=== PATIENT | male | born 1945 | race Caucasian/White ===

== ENCOUNTER 2017-03-12 01:39 | Emergency (ER) | payer OTHER ==
[~2017-03-12] VITALS: Ht 177.8 cm; Wt 111.0 kg
[~2017-03-12 01:39] MED LIST: AMLO-114 PO; CLOB-65 TOP
[2017-03-12 01:51] VITALS: Ht 177.8 cm; Wt 111.0 kg
[2017-03-12] MEDS ORDERED: FRS/40 PO (01:57)
[2017-03-12] MEDS ORDERED: POTA-74 PO (01:59)
[2017-03-12] MEDS ORDERED: WARF5TAB90 PO (02:00)
[2017-03-12] MEDS ORDERED: LISI-729 PO (02:01)
[2017-03-12 02:17] LABS: BASO % 0.1 %; BASO ABS # 0.01 K/uL (0-0.2); COMPLETE YES; EOS % 1.9 %; HEMATOCRIT 47.6 % (42-52); IG% 0.3 %; LYMPH % 21.1 %; LYMPH ABS # 1.58 K/uL (1.2-3.4); MEAN CELL VOLUME 95.8 fL (80-100); MEAN CORPUSCULAR HEMOGLOBIN 33.4 pg (25-34); MEAN CORPUSCULAR HGB CONC 34.9 g/dl (32-36); MEAN PLATELET VOLUME 11.4 fL (7.4-10.4); MONO % 11.2 %; NEUT % 65.4 %; PLATELET COUNT 201 K/uL (130-400); RED BLOOD COUNT 4.97 M/uL (4.7-6.1); WHITE BLOOD COUNT 7.49 K/uL (4.8-10.8)
[2017-03-12 02:26] LABS: INR 2.1 (0.9-1.1); PARTIAL THROMBOPLASTIN RATIO 1.3
--- NOTE | 2017-03-12 02:36 | EMERGENCY ROOM VISIT NOTE ---
History Report prepared by Nisha: Maria M Anderson Under the Supervision of: Dr. Merry Gifford M.D. First contact with patient: 01:54 Chief Complaint: FALL Stated Complaint: FALL History of Present Illness The patient is a 71 year old male who presents to the Emergency Room with complaints of a fall WELLNESS DIRECTOR. The patient was sleeping when he fell out of bed. His son found him on the ground next to his bed snoring. The patient appeared to be bleeding from his head. He does not remember the fall or hitting his head. He does not often roll out of bed. He has right elbow pain. He denies any neck pain , chest pain, or SOB. He is on coumadin for atrial fibrillation. The patient has a history of meningioma. He was on a seizure medication as a precaution, but has not had any seizures. The tumor came back in late 2014. He had radiation treatment and the tumor is no longer growing. Source of History: patient, spouse/significant other Onset: WELLNESS DIRECTOR Position: other (global) Quality: other (fall) Timing: other (episodic) Associated Symptoms: No neck pain, No chest pain, No SOB Note: Pt reports right elbow pain. Review of Systems See HPI for pertinent positives & negatives. A total of 10 systems reviewed and were otherwise negative. Past Medical & Surgical Medical Problems: (1) Meningioma (2) Recurrent meningioma of the brain Surgical Problems: (1) H/O left inguinal hernia repair (2) S/P tonsillectomy (3) Status post cataract surgery (4) Status post craniotomy Family History No pertinent family history stated. Social History Smoking Status: Never Smoker Drug Use: none Marital Status: Housing Status: lives with family Occupation Status: retired Current/Historical Medications Scheduled Amlodipine (Norvasc), 10 MG PO DAILY Furosemide (Lasix), 40 MG PO BID Lisinopril (Zestril), 5 MG PO DAILY Potassium Chloride (Potassium Chloride Er), 99 MG PO DAILY Warfarin Sodium (Coumadin), 5 MG PO DAILY Allergies Coded Allergies: No Known Allergies (Unverified , 03/12/17) Physical Exam Vital Signs Date Time Temp Pulse Resp B/P (MAP) Pulse Ox O2 Delivery O2 Flow Rate FiO2 03/12/17 03:29 36.6 60 18 157/65 95 Room Air 03/12/17 01:51 36.5 57 18 154/84 94 Room Air 03/12/17 01:48 57 Physical Exam Vital signs reviewed. General: Well-appearing male, in no significant distress. HEENT: 2cm hematoma to the mastoid region with a small abrasion over the pinna, no active bleeding. Dried blood on the face. Hematoma noted to the lateral edge of the right tongue, no active bleeding, no laceration. No scleral icterus, PERRLA, neck supple. Cardiovascular: Bradycardic rate and irregular rhythm, no extra sounds. Pulmonary: Clear to auscultation bilaterally, normal work of breathing. Abdomen: Soft, nontender, nondistended, positive bowel sounds. Musculoskeletal: Atraumatic, no peripheral edema. Nontender to palpation of the cervical, thoracic, and lumbar spine. Neurologic: Patient awake alert and oriented x 3, full strength in all 4 extremities. Cranial nerves 2 through 12 grossly intact. Skin: Warm, dry, no rash Medical Decision & Procedures ER Provider Diagnostic Interpretation: Radiology results as stated below per my review and [facility] radiologist interpretation: CT Head: Comparison: MRI brain 04/02/16. No acute intracranial hemorrhage. Bifrontal encephalomalacia, frontal craniotomies/postsurgical change, and planum sphenoidale meningioma, grossly similar to prior given differences in technique. Moderate right paranasal sinus mucosal thickening and trace left maxillary sinus mucosal thickening. Laboratory Results 03/12/17 01:44 Red Blood Count 4.97, Mean Corpuscular Volume 95.8, Mean Corpuscular Hemoglobin 33.4, Mean Corpuscular Hemoglobin Concent 34.9, Mean Platelet Volume 11.4, Neutrophils (%) (Auto) 65.4, Lymphocytes (%) (Auto) 21.1, Monocytes (%) (Auto) 11.2, Eosinophils (%) (Auto) 1.9, Basophils (%) (Auto) 0.1, Neutrophils # (Auto ) 4.90, Lymphocytes # (Auto) 1.58, Monocytes # (Auto) 0.84, Eosinophils # (Auto ) 0.14, Basophils # (Auto) 0.01 03/12/17 01:44 Test 03/12/17 01:44 White Blood Count 7.49 K/uL (4.8-10.8) Red Blood Count 4.97 M/uL (4.7-6.1) Hemoglobin 16.6 g/dL (14.0-18.0) Hematocrit 47.6 % (42-52) Mean Corpuscular Volume 95.8 fL (80-100) Mean Corpuscular Hemoglobin 33.4 pg (25-34) Mean Corpuscular Hemoglobin Concent 34.9 g/dl (32-36) Platelet Count 201 K/uL (130-400) Mean Platelet Volume 11.4 fL (7.4-10.4) Neutrophils (%) (Auto) 65.4 % Lymphocytes (%) (Auto) 21.1 % Monocytes (%) (Auto) 11.2 % Eosinophils (%) (Auto) 1.9 % Basophils (%) (Auto) 0.1 % Neutrophils # (Auto) 4.90 K/uL (1.4-6.5) Lymphocytes # (Auto) 1.58 K/uL (1.2-3.4) Monocytes # (Auto) 0.84 K/uL (0.11-0.59) Eosinophils # (Auto) 0.14 K/uL (0-0.5) Basophils # (Auto) 0.01 K/uL (0-0.2) RDW Standard Deviation 42.2 fL (36.4-46.3) RDW Coefficient of Variation 12.1 % (11.5-14.5) Immature Granulocyte % (Auto) 0.3 % Immature Granulocyte # (Auto) 0.02 K/uL (0.00-0.02) Prothrombin Time 23.0 SECONDS (9.0-12.0) Prothromb Time International Ratio 2.1 (0.9-1.1) Activated Partial Thromboplast Time 34.1 SECONDS (21.0-31.0) Partial Thromboplastin Ratio 1.3 Anion Gap 8.0 mmol/L (3-11) Est Creatinine Clear Calc Drug Dose 101.8 ml/min Estimated GFR () 102.6 Estimated GFR (Non- 88.5 BUN/Creatinine Ratio 8.9 (10-20) Calcium Level 8.8 mg/dl (8.5-10.1) Magnesium Level 2.3 mg/dl (1.8-2.4) Total Bilirubin 0.6 mg/dl (0.2-1) Direct Bilirubin 0.2 mg/dl (0-0.2) Aspartate Amino Transf (AST/SGOT) 21 U/L (15-37) Alanine Aminotransferase (ALT/SGPT) 28 U/L (12-78) Alkaline Phosphatase 57 U/L (45-117) Total Protein 7.4 gm/dl (6.4-8.2) Albumin 3.8 gm/dl (3.4-5.0) Chemistry Specimen Hemolysis Laboratory results per my review. ECG Indication: other (fall) Rate (beats per minute): 55 Rhythm: atrial fibrillation Findings: no acute ischemic change, other (possible previous anterior infarct) ED Course 0159: Past medical records reviewed. The patient was evaluated in room A11B. A complete history and physical examination was performed. 0322: Upon reevaluation, the patient was resting comfortably. I discussed findings with him. He verbalized agreement of the treatment plan. He was discharged home. Medical Decision Differential diagnosis: Intracranial injury, cervical spine injury, intrathoracic injury, intra- abdominal injury, musculoskeletal injury, mechanical fall, seizure, post concussive syndrome. This patient was evaluated and appeared to be in no significant distress. Patient's physical examination reveals a hematoma to the right mastoid, a small bite wound to the right lateral tongue. Patient has no neurologic compromise at this time. Patient has a long history of recurrent meningioma status post craniotomy as well as radiation therapy. CT scan of the head was performed and reveals no evidence of intracranial hemorrhage. There significant encephalomalacia from the above treatments. Patient's EKG reveals a rate controlled atrial fibrillation. Given the presentation as described by the , I am suspicious that this may have been a seizure. He denies ever having a seizure in the past. As this was not fully witnessed episode, could represent a closed head injury with postconcussive period afterwards. The patient has an point with his primary care physician this morning at 10 AM. As he has such close follow-up, I will defer any further treatment to his PCP plus/minus a neurology referral. Patient will be discharged to the care of his . He will return to the ER for worsening of symptoms or any medical concerns. Head Trauma GCS Score: 15 Medication Reconcilliation Current Medication List: was personally reviewed by me Blood Pressure Screening Patient's blood pressure: Elevated blood pressure Blood pressure disposition: Referred to PCP Impression Primary Impression: Closed head injury Scribe Attestation The scribe's documentation has been prepared under my direction and personally reviewed by me in its entirety. I confirm that the note above accurately reflects all work, treatment, procedures, and medical decision making performed by me. Departure Information Dispostion Home / Self-Care Referrals Freddie Millan D.O. (PCP) Forms HOME CARE DOCUMENTATION FORM, IMPORTANT VISIT INFORMATION Patient Instructions My [facility] Additional Instructions Diagnosis: Closed head injury Please follow up with your doctor tomorrow as scheduled. Consider f/u with neurology regarding possibility of seizure disorder. Return to the ED for worsening of symptoms or any medical concerns.
[2017-03-12 02:41] LABS: BUN/CREATININE RATIO 8.9 (10-20); CALCIUM 8.8 mg/dl (8.5-10.1); CREATININE 0.83 mg/dl (0.60-1.40); MAGNESIUM 2.3 mg/dl (1.8-2.4); POTASSIUM 3.6 mmol/L (3.5-5.1)
[2017-03-12 03:29] VITALS: BP 157/65; PULSE 60; TEMP 36.6; O2SAT 95
--- NOTE | 2017-03-12 07:07 | DIAGNOSTIC IMAGING REPORT ---
HEAD CT NONCONTRAST CT DOSE: 537.48 mGy.cm HISTORY: Head injury. fall, [facility], coumadin TECHNIQUE: Multiaxial CT images of the head were performed without the use of intravenous contrast. Automated exposure control was utilized for this study. A dose lowering technique was utilized adhering to the principles of ALARA. Comparison: Brain MRI 04/02/2016. Findings: Mild mucosal thickening within the right sphenoid sinus. The mastoid air cells are clear. There is again noted bifrontal craniotomies with bifrontal encephalomalacia for resection of a meningioma. There is a recurrent meningioma at the planum sphenoidale which appears to extend into the anterior sphenoid sinuses and posterior ethmoid air cells. This remains unchanged. This is consistent with a residual/recurrent meningioma. No hematoma, midline shift, acute infarct. Impression: No significant change compared to the prior study. No acute intracranial abnormality. Electronically signed by: Siddhartha Girard M.D. 03/12/2017 7:06 AM Dictated Date/Time: 03/12/2017 7:04 AM
== END 2017-03-12 03:38 | disposition home or self-care (01) ==
LOC: EDBD 01:39 → C.EDA 01:41
DX: S09.90XA Unspecified injury of head, initial encounter (principal); W06.XXXA Fall from bed, initial encounter; I48.91 Unspecified atrial fibrillation; G40.909 Epilepsy, unspecified, not intractable, without status epilepticus; Z86.011 Personal history of benign neoplasm of the brain; Z98.49 Cataract extraction status, unspecified eye; Z98.890 Other specified postprocedural states; Z79.01 Long term (current) use of anticoagulants; Z79.899 Other long term (current) drug therapy

== ENCOUNTER → 2017-03-20 | Outpatient (CLI) | payer OTHER ==
[~2017-03-20] MED LIST changes: -CLOB-65 TOP; +FRS/40 PO; +LISI-729 PO; +POTA-74 PO; +WARF5TAB90 PO
--- NOTE | 2017-03-20 17:02 | EEG Procedure Note ---
EEG Procedure Note Date of Service Mar 20, 2017. Start / End Times Start Time: 10:22 AM End Time: 10:43 AM Referring Physician Freddie Millan History This is a 71-year-old male status post fall and question of possible seizure. EEG for further evaluation of possible seizure etiology. Home Medication List Scheduled Amlodipine (Norvasc), 10 MG PO DAILY Furosemide (Lasix), 40 MG PO BID Lisinopril (Zestril), 5 MG PO DAILY Potassium Chloride (Potassium Chloride Er), 99 MG PO DAILY Warfarin Sodium (Coumadin), 5 MG PO DAILY Description This is a 21 electrode EEG with a single channel dedicated to limited EKG. The electrodes were placed in accordance with the International 10-20 system. At the start of the recording the patient was in an awake state. Background was well organized and composed of symmetric mixed alpha and beta frequencies. There was a symmetric well-formed moderate amplitude 8-9Hz posterior dominant rhythm that was reactive to eye opening and closure. Hyperventilation was not done. Intermittent photic stimulation at various frequencies produced no abnormalities. There was no state changes or sleep transients. Interpretation This is a normal awake only routine EEG. There was no electrographic seizures or epileptiform discharges. Clinical Correlation A normal EEG does not rule out epilepsy if there is a strong clinical suspicion.
== END ==
LOC: C.NEUR 09:49
PROVIDERS: ATTEND Internal Medicine
DX: Z91.81 History of falling (principal)

== ENCOUNTER → 2017-04-04 | Outpatient (CLI) | payer OTHER ==
[~2017-04-04] MED LIST changes: +GADAVIST IV PRN
--- NOTE | 2017-04-04 08:32 | DIAGNOSTIC IMAGING REPORT ---
BRAIN COMBO CLINICAL HISTORY: BENIGN NEOPLASM CEREBERAL MENINGES meningioma COMPARISON STUDY: 04/02/2016 TECHNIQUE: Utilizing a 1.5 Yusra magnet and dedicated coil, multiplanar, multiecho imaging of the brain was performed pre and postcontrast administration. IV administration of 9.5 mL of Gadavist contrast was uneventful. FINDINGS: Unchanged exam compared to the prior study. The enhancing frontal lesion in the planum sphenoid alae is unchanged in terms of size configuration or extent. It continues show generally uniform postcontrast enhancement. Postoperative encephalomalacia of the frontal lobe regions is stable. There are no new or interval findings. The brain shows uniform signal characteristics. The ventricular system is midline. No evidence hydrocephalus. All dimensions of the mass lesion are stable. IMPRESSION: 1. Stable exam with no change in the prior study. 2. The enhancing mass lesion previously described is unchanged compared to the prior study. It is consistent with a recurrent meningioma. 3. Stable postoperative encephalomalacia of both frontal lobe regions. 4. No new interval or progressive process. The above report was generated using voice recognition software. It may contain grammatical, syntax or spelling errors. Electronically signed by: Mil Lala M.D. 04/04/2017 8:31 AM Dictated Date/Time: 04/04/2017 8:23 AM
== END | disposition home or self-care (01) ==
LOC: C.MRIBC 07:06
PROVIDERS: ATTEND Physician Assistant Medical
DX: D32.9 Benign neoplasm of meninges, unspecified (principal)

== ENCOUNTER → 2017-04-12 | Outpatient (CLI) | payer OTHER ==
[~2017-04-12] MED LIST changes: -AMLO-114 PO; +AMLO10TA3 PO; -GADAVIST IV PRN
[2017-04-12 10:28] VITALS: BP 155/67; PULSE 56; TEMP 36.8; O2SAT 96
--- NOTE | 2017-04-12 14:04 | Radiation Oncology Follow-Up ---
Radiation Oncology Follow-Up Date of Visit Apr 12, 2017. Reason For Visit Annual follow-up Radiation Completion Date 05/11/14 for meningioma Diagnosis (1) Recurrent meningioma of the brain Status: Chronic Onset Date: 02/05/2014 Location: frontal and sphenoidal/ethmoid sinus involvement Stage: Not Applicable Permanent Comment: Status post gross total resection of meningioma 2004 Visual changes noted January 2014, visual field abnormalities noted at the oyster shipper MRI revealed meningioma extending into the sphenoid and ethmoid sinus area. Neurosurgical and radiation evaluation [facility] recommended radiation therapy. Status post completion of radiation therapy utilizing IMRT completed 05/11/2014 received 5400 cGy Last Edited By: Silvina Chirinos on Apr 06, 2015 16:47 Interim History He denies any problems of recurrent headaches over this past year. No dizziness. There's been no change in vision. No change in strength in the upper and lower extremities. He has had cardiac issues over this past year. Beginning in July with edema in the lower extremities. He was hospitalized at [facility] in [place]. He was diuresed for a total of 17 pounds. He continues now on Lasix 80 mg daily. More recently he fell out of bed on 2016. His son heard him and probably came to see what happened. He was difficult to arouse. He had injured his head and there was a wound. He was taken by ambulance to [facility]. He was evaluated and an EEG was performed. There was no seizure activity. He was found have atrial fibrillation. He is now being followed by meat processing center manager. He currently is wearing an event monitor. This will be in place for a total 21 days. He was evaluated with a noncontrast CT of the head and this showed no significant change to prior studies. No acute intracranial abnormalities. Following the diagnosis of congestive heart failure in July he was instructed to stop drinking alcohol. He has done this. And his edema has greatly improved. He did have his scheduled MRI performed on 04/04/2017. He is here for review of that study. Allergies Coded Allergies: No Known Allergies (Unverified , 03/12/17) Home Medications Scheduled Amlodipine (Norvasc), 10 MG PO DAILY Furosemide (Lasix), 40 MG PO BID Lisinopril (Zestril), 5 MG PO DAILY Potassium Chloride (Potassium Chloride Er), 99 MG PO DAILY Warfarin Sodium (Coumadin), 5 MG PO DAILY Review of Systems Gastrointestinal: Symptoms: WNL Oral: Symptoms: No Problems Respiratory: Symptoms: WNL Urinary: Symptoms: WNL Skin: Symptoms: No Problems Physical Exam Vital Signs Date Time Temp Pulse Resp B/P (MAP) Pulse Ox O2 Delivery O2 Flow Rate FiO2 04/12/17 10:28 36.8 56 12 155/67 96 General Appearance: no apparent distress Eyes: normal inspection, EOMI ENT: normal ENT inspection, hearing grossly normal Respiratory/Chest: lungs clear, no respiratory distress, no accessory muscle use Cardiovascular: no gallop, no JVD, no murmur, + irregularly irregular Abdomen: non tender, soft, no organomegaly Extremities: no pedal edema Neurologic/Psychiatric: vulcan crewmember II-XII nml as tested, no motor/sensory deficits, alert, normal mood/affect Pain Management Patient Reports Pain: No Pain Management Plan He denies pain therefore requires no pain management. Laboratory Laboratory Results: not applicable Pathology Pathology Results: not applicable Imaging Imaging Studies: were reviewed, and pertinent findings noted below Imaging Comments Patient: ELYSSA MCMILLAN Address1: [address] [place] [address] Rec: [id number] Address2: Acct ID: [id number] [facility] Zip: [place] [address] Date: 1945 Sex: M Room/Bed: Ref Phy: Freddie Millan D.O. SC: KATBC Att Phy: Silvina Chirinos PA-C Report #: [id number] Anel Phy: Freddie Millan D.O. Test: BANNER Admit Phy: Gas Main Fitter: LISA Interpreting Phy: Mil Lala M.D. Diagnosis: BENIGN NEOPLASM CEREBERAL MENINGES Ordering Phy: Silvina Chirinos PA-C Service Date: 04/04/17 Admit Date: 04/04/17 MNE: [id number] CONF: DICTATED BY: Mil Lala M.D.]] CC: Freddie Millan D.O. Kline, Angelica, PA-C Endcc: [~ rep ct add3]] BRAIN COMBO CLINICAL HISTORY: BENIGN NEOPLASM CEREBERAL MENINGES meningioma COMPARISON STUDY: 04/02/2016 TECHNIQUE: Utilizing a 1.5 Yusra magnet and dedicated coil, multiplanar, multiecho imaging of the brain was performed pre and postcontrast administration. IV administration of 9.5 mL of Gadavist contrast was uneventful. FINDINGS: Unchanged exam compared to the prior study. The enhancing frontal lesion in the planum sphenoid alae is unchanged in terms of size configuration or extent. It continues show generally uniform postcontrast enhancement. Postoperative encephalomalacia of the frontal lobe regions is stable. There are no new or interval findings. The brain shows uniform signal characteristics. The ventricular system is midline. No evidence hydrocephalus. All dimensions of the mass lesion are stable. IMPRESSION: 1. Stable exam with no change in the prior study. 2. The enhancing mass lesion previously described is unchanged compared to the prior study. It is consistent with a recurrent meningioma. 3. Stable postoperative encephalomalacia of both frontal lobe regions. 4. No new interval or progressive process. The above report was generated using voice recognition software. It may contain grammatical, syntax or spelling errors. Electronically signed by: Mil Lala M.D. 04/04/2017 8:31 AM Assessment & Plan Plan: He continues regular follow-up with his primary care physician and meat processing center manager. He'll be completing his event monitor and will follow up on those results. Today we reviewed the results of the brain MRI. Currently stable. This study was compared to the prior MRI performed on 04/02/2016. We' ll plan to have him return in 1 year with a recheck MRI prior to his visit. He may call if he has the questions or concerns in the interim. Total Time In Follow-Up I spent 20 minutes speaking to the patient performing examination. I spent 15 minutes reviewing information and completing this note. Copy To Lance Kim MD; Freddie Millan D.O.
== END | disposition home or self-care (01) ==
LOC: C.ONC 10:11
PROVIDERS: ATTEND Physician Assistant Medical
DX: Z08 Encounter for follow-up examination after completed treatment for malignant neoplasm (principal); Z92.3 Personal history of irradiation; Z85.841 Personal history of malignant neoplasm of brain